=== PATIENT | female | born 1980 | race Caucasian/White ===

== ENCOUNTER 2023-08-15 14:41 | Outpatient (CLI) | payer BC | END 2023-08-15 14:42 | disposition home or self-care (01) | LOC: BICMAMMO 14:41 | PROVIDERS: ATTEND Obstetrics & Gynecology | DX: N63.10 Unspecified lump in the right breast, unspecified quadrant (principal); N63.20 Unspecified lump in the left breast, unspecified quadrant; N60.02 Solitary cyst of left breast; N60.01 Solitary cyst of right breast | CPT/HCPCS: 76642; 77066; G0279 ==

== ENCOUNTER 2024-04-04 14:31 | Outpatient (CLI) | payer OTHER | END 2024-04-04 14:32 | disposition home or self-care (01) | LOC: BICMAMMO 14:31 | PROVIDERS: ATTEND Internal Medicine | DX: R92.8 Other abnormal and inconclusive findings on diagnostic imaging of breast (principal) | CPT/HCPCS: 76642; 77066; G0279 ==

== ENCOUNTER 2025-04-22 10:09 | Outpatient (CLI) | payer OTHER | END 2025-04-22 10:10 | disposition home or self-care (01) | LOC: BICMAMMO 10:09 | PROVIDERS: ATTEND Internal Medicine | DX: Z12.31 Encounter for screening mammogram for malignant neoplasm of breast (principal) | CPT/HCPCS: 77063; 77067 ==